=== PATIENT | male | born 1975 | race Caucasian/White ===

== ENCOUNTER 2018-12-02 05:19 | Emergency (ER) | payer OTHER ==
[2018-12-02 05:38] VITALS: TEMP 98.7; BMI 24.8
--- NOTE | 2018-12-02 05:39 | PDOC ---
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 The pt reports the mass has been there for approximately 3 years. He states that tonight when he lays down, he feels pressure under the mass that resolves when he sits or stands. This pressure is new and is what prompted his presentation. He also reports LUE paresthesias that have been present for several days. He describes constant LUE medial tingling from just distal to his axilla to his ring and little finger. He denies any injury/trauma to his neck, shoulder, or LUE. He had a similar sensation approximately 1 year ago that resolved spontaneously. Denies fevers/chills, vision changes, SOB, need for inhaler, abdominal pain, N/V /C/D, dysuria, hematuria, or blood in his stool. 12/02/18 06:13 Past History - Past Medical History Allergies/Adverse Reactions: Allergies Allergy/AdvReac Type Severity Reaction Status Date / Time No Known Allergies Allergy Verified 12/02/18 05:38 Asthma: Yes COPD: No - Suicide/Smoking/Psychosocial Hx Smoking History: Never smoked Review of Systems - Review of Systems Able to Perform ROS?: Yes Comments:: GENERAL/CONSTITUTIONAL: No fever or chills HEAD, EYES, EARS, NOSE AND THROAT: No change in vision. No ear pain or discharge. No sore throat CARDIOVASCULAR: No shortness of breath RESPIRATORY: Denies cough, hemoptysis GASTROINTESTINAL: No nausea, vomiting, diarrhea or constipation GENITOURINARY: No dysuria, frequency, or change in urination MUSCULOSKELETAL: No joint or muscle swelling or pain. No neck or back pain SKIN: No rash NEUROLOGIC: No headache, vertigo, loss of consciousness ENDOCRINE: No increased thirst. No abnormal weight change HEMATOLOGIC/LYMPHATIC: No anemia, easy bleeding, or history of blood clots ALLERGIC/IMMUNOLOGIC: No hives or skin allergy 12/02/18 05:39 Is the patient limited Portuguese proficient: No *Physical Exam - Vital Signs Last Vital Signs Temp Pulse Resp BP Pulse Ox 98.7 F 107 H 18 125/63 97 12/02/18 05:36 12/02/18 05:36 12/02/18 05:36 12/02/18 05:36 12/02/18 05:36 - Physical Exam Comments: GENERAL: Awake, alert, and oriented to person/place/time, in no acute distress HEAD: No signs of trauma, normocephalic, atraumatic EYES: PERRLA, EOMI, sclera anicteric, conjunctiva clear ENT: Hearing grossly normal, nares patent, oropharynx clear without exudates. No uvular deviation. Moist mucosa CHEST: left infraclavicular chest wall mass that is soft, mobile, NTTP while sitting and uncomfortable to palpation while laying, w/o overlying erythema, non -fluctuant LUNGS: No distress, speaks full sentences, clear to auscultation bilaterally HEART: Regular rate and rhythm, normal S1 and S2, no murmurs appreciated, peripheral pulses normal and equal bilaterally ABDOMEN: Soft, nontender, normoactive bowel sounds. No guarding, no rebound EXTREMITIES: Normal inspection, Normal range of motion, no edema. No clubbing or cyanosis NEUROLOGICAL: Cranial nerves II through XII grossly intact. Normal speech, normal gait, decreased sensation to light touch over medial brachium, medial forearm, medial palm, and ring/little fingers. Strength 5/5 throughout SKIN: Warm, Dry 12/02/18 05:39 Medical Decision Making - Medical Decision Making The pt is a 43M w/ a history of asthma who presents for evaluation of L chest pressure and LUE paresthesias ED Course Labs sent ECG CXR ECG w/ sinus tachycardia; HR 104; QTc 491; no evidence of acute ischemia 12/02/18 06:20
[2018-12-02 06:17] LABS: HEMATOCRIT 45.2 % (35.4-49); HEMOGLOBIN 15.1 GM/dL (11.7-16.9); MCH 28.1 pg (25.7-33.7); MCHC 33.4 g/dl (32.0-35.9); MEAN CELL VOLUME 84.3 fl (80-96); MEAN PLT VOLUME 7.8 fl (7.5-11.1); PLATELET COUNT 262 K/MM3 (134-434); RBC 5.36 M/mm3 (4.00-5.60); RDW 13.9 % (11.9-15.9); WHITE BLOOD COUNT 7.6 K/mm3 (4.0-10.0)
--- NOTE | 2018-12-02 06:26 | PDOC ---
Attending Attestation - Resident Resident Name: Kevin Pathak - ED Attending Attestation I have performed the following: I have examined & evaluated the patient, The case was reviewed & discussed with the resident, I agree w/resident's findings & plan, Exceptions are as noted - HPI HPI: 12/02/18 07:16 43M pmh of asthma here with chest pressure for 2 days. Pt states that he feels pressure a chest mass that he has had for 3 years when he lays back. The sensation disappears when he sits up. Also c/o LUE numbness for 3 days, no pain , no weakness. - Physicial Exam PE: 12/02/18 07:19 NAD, AOx3 Soft, mobile, 3cm mass superficial to the L clavicle, no tenderness, no erythema , no fluctuance, no induration Decreased sensation medial surface of LUE from axilla to distal tip of 4th and 5th digits Strength 5/5 - Medical Decision Making 12/02/18 07:21 Atypical chest pain, ACS less likely, consider sequelae of chest wall mass Painless paresthesia r/o acs, f/u labs, cxr r/o central cause of deficit, f/u ct b
[2018-12-02 06:55] LABS: ALBUMIN 1.2 g/dl (3.4-5.0); ALK PHOS 101 U/L (45-117); ANION GAP 6 MMOL/L (8-16); BILIRUBIN,TOTAL 0.3 mg/dL (0.2-1); BLOOD UREA NITROGEN 11 mg/dL (7-18); CALCIUM 8.6 mg/dL (8.5-10.1); CHLORIDE 108 mmol/L (98-107); CO2 29 mmol/L (21-32); CREATININE 1.2 mg/dL (0.55-1.3); GLUCOSE,RANDOM 84 mg/dL (74-106); POTASSIUM 3.7 mmol/L (3.5-5.1); SGOT/AST 25 U/L (15-37); SGPT/ALT 39 U/L (13-61); SODIUM 142 mmol/L (136-145); TOT PROT 7.3 g/dl (6.4-8.2)
[2018-12-02 07:05] VITALS: BP 116/77; PULSE 78
--- NOTE | 2018-12-02 11:12 | PDOC ---
*Physical Exam - Vital Signs Last Vital Signs Temp Pulse Resp BP Pulse Ox 98.7 F 78 18 116/77 100 12/02/18 05:36 12/02/18 07:01 12/02/18 07:40 12/02/18 07:01 12/02/18 07:40 - Physical Exam General Appearance: Yes: Nourished, Appropriately Dressed HEENT: positive: Normal ENT Inspection Neck: positive: Supple Respiratory/Chest: positive: Lungs Clear Cardiovascular: positive: Regular Rhythm, Regular Rate Vascular Pulses: Dorsalis-Pedis (R): 2+, Doralis-Pedis (L): 2+ Gastrointestinal/Abdominal: positive: Soft Rectal Exam: positive: deferred Musculoskeletal: positive: Normal Inspection Extremity: positive: Normal Capillary Refill Integumentary: positive: Normal Color Neurologic: positive: Fully Oriented, Alert ED Treatment Course - LABORATORY CBC & Chemistry Diagram: 12/02/18 06:05 12/02/18 06:05 - ADDITIONAL ORDERS Additional order review: Laboratory Results 12/02/18 12/02/18 10:27 06:05 Sodium 142 Potassium 3.7 Chloride 108 H Carbon Dioxide 29 Anion Gap 6 L BUN 11 Creatinine 1.2 Creat Clearance w eGFR 66.72 Random Glucose 84 Calcium 8.6 Total Bilirubin 0.3 AST 25 ALT 39 Alkaline Phosphatase 101 Troponin I < 0.02 < 0.02 Total Protein 7.3 Albumin 1.2 L 12/02/18 06:05 RBC 5.36 MCV 84.3 MCHC 33.4 RDW 13.9 MPV 7.8 Medical Decision Making - Medical Decision Making Patient signed out to me pending CT and repeat trop. - Repeat trop negative - Head CT negative - Will DC w pcp FU *DC/Admit/Observation/Transfer Diagnosis at time of Disposition: Chest pain - Discharge Dispostion Disposition: HOME Condition at time of disposition: Improved Decision to Admit order: No - Referrals Referrals: Robin Muñiz MD [Primary Care Provider] - - Patient Instructions Printed Discharge Instructions: DI for Chest Pain Additional Instructions: You came into the ER with chest pain. We did two sets of troponins which both came back negative. Your x-ray and cat scan were negative. Please schedule a follow up with your primary care doctor in the next 3 to 5 days. Come back to the ER if your chest pain worsens, or you have any other new or worsening concerns. Thank you for coming to the [facility]. We hope you feel better soon! - Post Discharge Activity
--- NOTE | 2018-12-02 11:19 | EKG ---
Test Reason : Blood Pressure : / mmHG Vent. Rate : 104 BPM Atrial Rate : 104 BPM P-R Int : 132 ms QRS Dur : 110 ms QT Int : 374 ms P-R-T Axes : 033 024 021 degrees QTc Int : 491 ms SINUS TACHYCARDIA NONSPECIFIC ST ABNORMALITY NO PREVIOUS ECGS AVAILABLE Confirmed by TAYLOR ENRIQUE MD ([id number]) on 12/02/2018 11:18:52 AM Referred By: Confirmed By:TAYLOR ENRIQUE MD
== END 2018-12-02 11:56 | disposition home or self-care (01) ==
LOC: JER 05:19
DX: R07.9 Chest pain, unspecified (principal)
CPT/HCPCS: 36415; 70450-TC; 71045-TC-FY; 80053; 84484; 85027; 93005; 93010; 99284-25

== ENCOUNTER 2022-01-13 04:30 | Day surgery (SDC) | payer OTHER ==
[2022-01-12 11:33] VITALS: BMI 26.9
[2022-01-13] MEDS ORDERED: PROPOFOL 20 ML ONE ×2 (08:57→09:00)
[2022-01-13] MEDS ORDERED: MIDAZOLAM HCL 2 MG/2 ML SINGLE DOSE VIAL ONE (08:57)
[2022-01-13] MEDS ORDERED: FENTANYL CITRATE/PF 50 MCG/ML VIAL ONE ×3 (08:57→09:46)
[2022-01-13] MEDS ORDERED: SUCCINYLCHOLINE CHLORIDE 200 MG/10 ML SYRINGE ONE (09:00)
[2022-01-13] MEDS ORDERED: oxyCODONE HCL 5 MG TABLET PO PRN (09:05)
[2022-01-13] MEDS ORDERED: PROMETHAZINE HCL 25 MG/1 ML VIAL IVPUSH PRN (09:05)
[2022-01-13] MEDS ORDERED: ONDANSETRON 4 MG/2 ML VIAL IVPUSH PRN (09:05)
[2022-01-13] MEDS ORDERED: LACTATED RINGERS SOLUTION 1,000 ML IV SCH (09:15)
[2022-01-13] MEDS ORDERED: LIDOCAINE HCL 1%, 10 MG/ML (20ML VIAL) ONE (09:29)
[2022-01-13] MEDS ORDERED: ceFAZolin SODIUM 1 GM VIAL IVPB ONE (09:30)
[2022-01-13] MEDS ORDERED: LIDOCAINE HCL 1%, 10 MG/ML (20ML VIAL) INF ONE ×2 (09:39)
[2022-01-13] MEDS ORDERED: BUPIVACAINE HCL/PF 0.5% (5MG/ML) 10 ML VIAL IJ ONE ×2 (09:39)
[2022-01-13] MEDS ORDERED: DEXAMETHASONE SOD PHOSPHATE 4 MG/1 ML VIAL ONE (09:49)
[2022-01-13] MEDS ORDERED: ceFAZolin SODIUM 1 GM VIAL ONE (09:49)
[2022-01-13] MEDS ORDERED: ACETAMINOPHEN 500 MG TABLET (FP) PO PRN (10:43)
[2022-01-13] MEDS ORDERED: ACETAMINOPHEN 500 MG TABLET (FP) PO ONE (12:00)
[2022-01-13 16:15] VITALS: TEMP 97.8
[2022-01-13 16:22] VITALS: BP 120/74; PULSE 62
== END 2022-01-13 12:05 | disposition home or self-care (01) ==
LOC: JASU-SURG 04:30
PROVIDERS: ATTEND Surgery
PROC: 0JB60ZZ Excision of Chest Subcutaneous Tissue and Fascia, Open Approach (ICD-10-PCS; 2022-01-13)
PROC: 0JB80ZZ Excision of Abdomen Subcutaneous Tissue and Fascia, Open Approach (ICD-10-PCS; principal; 2022-01-13 09:00)
DX: D17.1 Benign lipomatous neoplasm of skin and subcutaneous tissue of trunk (principal)
CPT/HCPCS: 88304-TC; 94760